=== PATIENT | female | born 1990 | race African-American/Black ===

== ENCOUNTER 2017-08-18 06:34 | Day surgery (SDC) | payer BC ==
[~2017-08-18] VITALS: Ht 160 cm; Wt 113.4 kg
[~2017-08-18 06:34] MED LIST: ADULT LOW DOSE81 M1 PO; ADVAIR 250/501 DISK IH; ADVAIR 500/501 DISK IH; ALBUTEROL2.5 MG/0.5 IH; ALDOMET250 MG PO; ALPRAZOLAM0.5 MG PO; ANTIDEPRESSION; ASPIRIN PO; BUSPAR15 MG PO; CATAPRES0.1 MG PO; CIPROFLOXACIN500 M1 PO; DIAMOX250 MG PO; FIORICET,ESG1 TABLET PO; Flagyl PO; GLUCOPHAGE500 MG PO; IBUPROFEN800 MG PO; INNOPRAN XL120 MG PO; IRON325 M1 PO; Indocin PO; MOTRIN800 MG PO; NATALCARE RX1 TABLET PO; PLAQUENIL200 MG PO; PRENATAL1 EACH PO; PROZAC20 MG PO; PROZAC40 MG PO; PROzac PO; PULMICORT0.25 MG/1 IH; Prometrium; SEROPHENE50 MG PO; SEROQUEL50 MG PO; TYLENOL REGULA325 MG PO; VENTOLIN HFA18 GM IH; XANAX0.5 MG PO; ZOFRAN ODT4 MG PO; [UNRECOGNIZED DRUG - REMARK]
[2017-08-18 07:00] VITALS: BP 131/71
[2017-08-18 11:01] VITALS: BP 136/85
[2017-08-18 12:30] VITALS: BP 119/77
== END 2017-08-18 12:30 | disposition home or self-care (01) ==
LOC: SDC 06:34
DX: N92.1 Excessive and frequent menstruation with irregular cycle (principal); E28.2 Polycystic ovarian syndrome; N84.0 Polyp of corpus uteri; E66.01 Morbid (severe) obesity due to excess calories; Z68.41 Body mass index [BMI] 40.0-44.9, adult; J45.909 Unspecified asthma, uncomplicated; I10 Essential (primary) hypertension; K21.9 Gastro-esophageal reflux disease without esophagitis; E78.00 Pure hypercholesterolemia, unspecified; F17.200 Nicotine dependence, unspecified, uncomplicated; R73.03 Prediabetes; E55.9 Vitamin D deficiency, unspecified; G93.2 Benign intracranial hypertension; Z87.891 Personal history of nicotine dependence
CPT/HCPCS: 88305; 93005; J0330; J0690; J2250; J2405; J3010